=== PATIENT | female | born 1945 | race Caucasian/White ===

== ENCOUNTER → 2024-03-21 10:02 | Outpatient (BNVA) | payer MEDICARE, MEDICAID, SELFPAY | PROVIDERS: Visit Provider Specialist | DX: R20.0 Anesthesia of skin (principal); R20.2 Paresthesia of skin; G56.22 Lesion of ulnar nerve, left upper limb | CPT/HCPCS: 95910 ==

== ENCOUNTER → 2025-08-13 10:28 | Outpatient (BNVA) | payer MEDICARE, MEDICAID, SELFPAY | PROVIDERS: PCP Family Medicine; Visit Provider Student in an Organized Health Care Education/Training Program | DX: M79.642 Pain in left hand (principal); G56.02 Carpal tunnel syndrome, left upper limb; G56.22 Lesion of ulnar nerve, left upper limb | CPT/HCPCS: 73130; 99204 ==